=== PATIENT | male | born 1985 | race American Indian/Alaskan Native ===

== ENCOUNTER 2016-10-27 22:00 | Emergency (ER) | payer SELFPAY ==
[2016-10-27] MEDS ORDERED: ZESTRIL ONE (22:34)
[2016-10-27] MEDS ORDERED: HCTZ ONE (22:35)
[2016-10-27] MEDS ORDERED: ZESTRIL PO ONE (22:38)
[2016-10-27] MEDS ORDERED: HCTZ PO ONE (22:39)
[2016-10-28] MEDS ORDERED: CATAPRES PO ONE (01:05)
[2016-10-28 02:02] VITALS: BP 170/110
--- NOTE | 2016-10-28 02:59 | Emergency Department Report ---
ED General Adult HPI - General Chief complaint: High BP Stated complaint: HIGH BLOOD PRESSURE Time Seen by Provider: 10/28/16 02:40 Source: patient Mode of arrival: Ambulatory Limitations: No Limitations - History of Present Illness Initial comments: 31-year-old male past medical history obesity, hypertension presents with complaint of running out of his hypertension medicine 5 days ago. Patient states that he ran out of his lisinopril/hydrochlorothiazide 10-12.5 mg. Patient is awake alert and oriented 3 not in acute distress denies blurry vision chest pain shortness of breath nausea vomiting abdominal pain. Pt STATES HE DOES NOT HAVE HIV, STATES HE WAS GIVEN PROPHYLAXIS AGAINST HIV WITH PReP, CLAIMS HE TESTED NEGATIVE IN THE PAST Onset/Timin -: days(s) Improves with: none Worsens with: none Associated Symptoms: denies other symptoms - Related Data Previous Rx's Medication Instructions Recorded Last Taken Type Lisinopril/Hydrochlorothiazide 1 tab PO BID #60 tablet 10/28/16 Unknown Rx [Zestoretic 10-12.5 mg] Allergies Allergy/AdvReac Type Severity Reaction Status Date / Time No Known Allergies Allergy Verified 10/27/16 22:20 ED Review of Systems ROS: Stated complaint: HIGH BLOOD PRESSURE Other details as noted in HPI Constitutional: denies: chills, fever Eyes: denies: eye pain, eye discharge, vision change ENT: denies: ear pain, throat pain Respiratory: denies: cough, shortness of breath, wheezing Cardiovascular: denies: chest pain, palpitations Endocrine: no symptoms reported Gastrointestinal: denies: abdominal pain, nausea, diarrhea Genitourinary: denies: urgency, dysuria Musculoskeletal: denies: back pain, joint swelling, arthralgia Skin: denies: rash, lesions Neurological: denies: headache, weakness, paresthesias Psychiatric: denies: anxiety, depression Hematological/Lymphatic: denies: easy bleeding, easy bruising ED Past Medical Hx - Past Medical History Previous Medical History?: Yes Hx HIV: Yes - Surgical History Past Surgical History?: No - Social History Smoking Status: Never Smoker Substance Use Type: None - Medications Home Medications: Home Medications Medication Instructions Recorded Confirmed Last Taken Type Lisinopril/Hydrochlorothiazide 1 tab PO BID #60 tablet 10/28/16 Unknown Rx [Zestoretic 10-12.5 mg] ED Physical Exam - General Limitations: No Limitations General appearance: alert, in no apparent distress - Head Head exam: Present: atraumatic, normocephalic - Eye Eye exam: Present: normal appearance, PERRL, EOMI - ENT ENT exam: Present: mucous membranes moist - Neck Neck exam: Present: normal inspection, full ROM - Respiratory Respiratory exam: Present: normal lung sounds bilaterally. Absent: respiratory distress - Cardiovascular Cardiovascular Exam: Present: regular rate, normal rhythm. Absent: systolic murmur, diastolic murmur, rubs, gallop - GI/Abdominal GI/Abdominal exam: Present: soft, normal bowel sounds - Rectal Rectal exam: Present: deferred - Extremities Exam Extremities exam: Present: normal inspection - Back Exam Back exam: Present: normal inspection - Neurological Exam Neurological exam: Present: alert, oriented X3, CN II-XII intact, normal gait - Psychiatric Psychiatric exam: Present: normal affect, normal mood - Skin Skin exam: Present: warm, dry, intact, normal color. Absent: rash ED Course Vital Signs 10/27/16 10/27/16 10/28/16 22:21 22:40 01:04 Temperature 98.2 F Pulse Rate 90 90 Respiratory 18 Rate Blood Pressure 185/129 185/129 Blood Pressure 190/121 [Left] O2 Sat by Pulse 99 Oximetry 10/28/16 10/28/16 01:06 02:01 Temperature Pulse Rate Respiratory Rate Blood Pressure 190/121 Blood Pressure 170/110 [Left] O2 Sat by Pulse Oximetry ED Medical Decision Making - Medical Decision Making A/P: Asymptomatic hypertension 1-refill on lisinopril-hydrochlorothiazide 2-primary care referral 3-patient has no current symptoms, no blurry vision headache dizziness chest pain shortness of breath palpitations paresthesias abdominal pain nausea vomiting Critical care attestation.: If time is entered above; I have spent that time in minutes in the direct care of this critically ill patient, excluding procedure time. ED Disposition Clinical Impression: Hypertension Qualifiers: Hypertension type: unspecified Qualified Code(s): I10 - Essential (primary) hypertension Disposition: TO HOME OR SELFCARE Is pt being admited?: No Does the pt Need Aspirin: No Condition: Stable Instructions: Hypertension (ED) Prescriptions: Lisinopril/Hydrochlorothiazide [Zestoretic 10-12.5 mg] 1 tab PO BID #60 tablet Referrals: [facility] [Outside] - 3-5 Days [facility] [Outside] - 3-5 Days [facility] [Outside] - 3-5 Days [facility] [Provider Group] - 3-5 Days REZA BARCENAS MD [Staff Physician] - 3-5 Days Forms: Work/School Release Form(ED) Time of Disposition: 02:59
== END 2016-10-28 03:06 | disposition home or self-care (01) ==
LOC: ED 22:00
DX: I10 Essential (primary) hypertension (principal); Z21 Asymptomatic human immunodeficiency virus [HIV] infection status
CPT/HCPCS: 99282

== ENCOUNTER 2017-03-04 13:48 | Emergency (ER) | payer SELFPAY ==
[2017-03-04] MEDS ORDERED: HCTZ PO ONE (15:41)
--- NOTE | 2017-03-04 15:44 | Emergency Department Report ---
Chief Complaint: Upper Respiratory Infection Stated Complaint: COUGH/BUCKNER/BODY PAIN - HPI History of Present Illness: 31-year-old male past medical history hypertension presents with complaint of 2- 3 days of body aches cough sore throat. Patient also states he has been out of his blood pressure medications approximately 6 days. Patient awake alert and oriented 3. - ROS Review of Systems: Cold symptoms 5-6 days - Exam Vital Signs: Vital Signs 03/04/17 15:25 Temperature 98.4 F Pulse Rate 85 Respiratory 18 Rate Blood Pressure 215/137 O2 Sat by Pulse 100 Oximetry Physical Exam: Awake alert and oriented 3 heart S1-S2 MSE screening note: Focused history and physical exam performed. Due to findings the following was ordered: Screening Assessment/Plan/Differential Dx: Hypertension, flulike symptoms 1- This initial assessment/diagnostic orders/clinical plan/ treatment(s) is/are subject to change based on pt's health status, clinical progression and re- assessment by fellow clinical providers in the ED. Further treatment and workup at subsequent clinical provers discretion. Patient/guardians urged not to elope from ED as their condition may be serious if not clinically assessed and managed. 2-flu swab sent, basic labs, urinalysis 3-states that he took a friend's lisinopril 20 mg morning. I will provide him with his missing hydrochlorothiazide 4- patient denies shortness of breath, chest pain or palpitations but is complaining of body aches ED Disposition for MSE Condition: Stable
[2017-03-04 15:58] LABS: Basophils # (Auto) 0.1 K/mm3 (0.0-0.1); Basophils % (Auto) 0.9 % (0.0-1.8); Eosinophils # (Auto) 0.3 K/mm3 (0.0-0.4); Hematocrit 43.2 % (35.5-45.6); Hemoglobin 13.7 gm/dl (11.8-15.2); Lymphocytes # (Auto) 2.4 K/mm3 (1.2-5.4); Mean Corpuscular HGB Conc 32 % (32-34); Mean Corpuscular Volume 80 fl (84-94); Monocytes # (Auto) 0.9 K/mm3 (0.0-0.8); Monocytes % (Auto) 12.9 % (0.0-7.3); Platelet Count 199 K/mm3 (140-440); Red Blood Count 5.43 M/mm3 (3.65-5.03); Red Cell Distribution Width 15.7 % (13.2-15.2)
[2017-03-04 16:07] LABS: Mean Corpuscular Hemoglobin 25 pg (28-32)
[2017-03-04 16:15] LABS: Bilirubin,Urine NEG (Negative); Blood,Urine SM (Negative); Color,Urine Yellow (Yellow); Mucus,Urine FEW /HPF; Nitrite,Urine NEG (Negative); Urobilinogen,Urine < 2.0 mg/dL (<2.0)
[2017-03-04 16:22] LABS: BUN/Creatinine Ratio 10; Blood Urea Nitrogen 10 mg/dL (9-20); Calcium 9.7 mg/dL (8.4-10.2); Hemolysis Index 14
[2017-03-04] MEDS ORDERED: CATAPRES PO ONE (17:06)
--- NOTE | 2017-03-04 23:10 | Emergency Department Report ---
HPI - General Chief Complaint: Upper Respiratory Infection Time Seen by Provider: 03/04/17 23:09 - HPI HPI: 31-year-old male past medical history hypertension presents with complaint of 2- 3 days of body aches cough sore throat. Patient also states he has been out of his blood pressure medications approximately 6 days. Patient awake alert and oriented 3. Patient denies any chest pain, shortness of breath. Denies any neck pain or dizziness. He said he has slight headache today but he doesn't have any right now but he is having body aches and feels like he has the flu. Reports that he's been coughing on and off and is been taking rllv-[id number]-[id number] cough and cold and is not helping. He is unable to [place] what medication he is taking these said is [id number] cough medicine. Denies any visual difficulties or dizziness. Pain at present 0-10. Patient states that he just moved to [place] and he does not have a doctor. Denies any abdominal or back pain. ED Past Medical Hx - Past Medical History Previous Medical History?: Yes Hx Hypertension: Yes Hx HIV: Yes - Surgical History Past Surgical History?: No - Family History Family history: hypertension - Social History Smoking Status: Never Smoker Substance Use Type: Alcohol - Medications Home Medications: Home Medications Medication Instructions Recorded Confirmed Last Taken Type Lisinopril/Hydrochlorothiazide 1 tab PO BID #60 tablet 10/28/16 Unknown Rx [Zestoretic 10-12.5 mg] Amoxicillin/K Clav Tab [Augmentin 1 tab PO Q12HR 10 Days #20 tab 03/05/17 Unknown Rx 875 mg] Cetirizine HCl [ZyrTEC] 10 mg PO QAM 14 Days #14 capsule 03/05/17 Unknown Rx Hydrochlorothiazide [HCTZ] 25 mg PO QAM 30 Days #30 tablet 03/05/17 Unknown Rx Lisinopril [Zestril TAB] 20 mg PO QDAY 30 Days #30 tablet 03/05/17 Unknown Rx ED Review of Systems ROS: Stated complaint: COUGH/BUCKNER/BODY PAIN Other details as noted in HPI Comment: All other systems reviewed and negative Constitutional: no symptoms reported Eyes: denies: eye pain, eye discharge, vision change ENT: congestion. denies: throat pain, epistaxis Respiratory: cough. denies: orthopnea, shortness of breath, SOB with exertion, SOB at rest, stridor, wheezing Cardiovascular: denies: chest pain, palpitations, dyspnea on exertion, orthopnea , edema, syncope, paroxysmal nocturnal dyspnea Gastrointestinal: denies: abdominal pain, nausea, vomiting, diarrhea, constipation, hematemesis, melena, hematochezia Genitourinary: denies: urgency, dysuria, frequency, hematuria, discharge Musculoskeletal: denies: back pain, joint swelling, arthralgia, myalgia Skin: denies: rash Neurological: denies: headache, numbness, paresthesias, confusion, abnormal gait , vertigo Physical Exam - Physical Exam Vital Signs: Vital Signs 03/04/17 03/04/17 03/04/17 15:25 17:00 17:11 Temperature 98.4 F Pulse Rate 85 79 Respiratory 18 Rate Blood Pressure 215/137 212/128 Blood Pressure 212/128 [Left] O2 Sat by Pulse 100 Oximetry Vital Signs 03/04/17 03/04/17 03/04/17 15:25 17:00 17:11 Temperature 98.4 F Pulse Rate 85 79 Respiratory 18 Rate Blood Pressure 215/137 212/128 Blood Pressure 212/128 [Left] O2 Sat by Pulse 100 Oximetry 03/04/17 03/05/17 03/05/17 23:32 00:27 01:20 Temperature 98.9 F 99.5 F Pulse Rate 79 80 89 Respiratory 16 16 Rate Blood Pressure 205/125 Blood Pressure 205/125 194/121 [Left] O2 Sat by Pulse 99 100 Oximetry 03/05/17 03/05/17 03/05/17 01:29 01:30 04:15 Temperature Pulse Rate 80 80 81 Respiratory 16 Rate Blood Pressure 192/105 192/105 Blood Pressure 116/64 [Left] O2 Sat by Pulse 99 Oximetry General: This is a 31-year-old male well-nourished well-developed in no acute distress. Physical Exam: Head: Normocephalic, atraumatic, no abrasion, no bruising and no contusion. Eyes: Biateral pupils equal and reactive to light, bilateral EOM intact.. Bilateral conjunctival and sclera without injection, normal accommodation. No nystagmus Mouth: Moist, no pharyngeal exudate or erythema. No peritonsillar abscesses. Uvula is midline and oral airways patent. Ears: TM congested without erythema. Bilateral EAC without any redness swelling or drainage. No mastoid bone tenderness Nose: rose nasal turbinates congested with erythema and clear drainage. Maxillary and frontal sinuses non-tender to palpate. Neck: Supple, No Cervical adenopathy, full range of motion and no C-spine tenderness. No swelling or tracheal deviation normal reflexes Cardiovascular: S1, S2. Regular rate and rhythm. No murmur. Capillary refill is less then 3 seconds. Lungs: Clear to auscultate bilaterally. No rhonchi, wheezes or rales. No chest wall tenderness. No chest contusion. No bruising to chest. Dry cough MSK: Strength 5/5 in all extremities. No joint deformity or crepitus. Normal inspection. Full range of motion to all extremities. No laceration, abrasion or ecchymotic area noted. Patient able to fully flex and extend bilateral knees without any difficulties. Bilateral knees nontender to palpate. Abdomen: Non-tender to palpate in all quadrants, no guarding or rebound tenderness, positive bowel sounds in all quadrants. No CVA tenderness. No hernia, bruit or mass. No rigidity or distention. Extremities: No clubbing, cyanosis or edema. +2 pulses. No neurovascular compromise Skin: Clean, dry and intact. No rash or lesions. Neurological: GCS at 15, Pt is alert and oriented 3 speech is clear . Bilateral hand queen producer strong and equal. Normal gait. Negative Romberg and no pronator drift. Normal Reflexes. No motor or sensory deficit Back: No vertebral tenderness, no paraspinal tenderness. Ambulates without any difficulties. Psych: Normal mood and behavior ED Course Vital Signs 03/04/17 03/04/17 03/04/17 15:25 17:00 17:11 Temperature 98.4 F Pulse Rate 85 79 Respiratory 18 Rate Blood Pressure 215/137 212/128 Blood Pressure 212/128 [Left] O2 Sat by Pulse 100 Oximetry Vital Signs 03/04/17 03/04/17 03/04/17 15:25 17:00 17:11 Temperature 98.4 F Pulse Rate 85 79 Respiratory 18 Rate Blood Pressure 215/137 212/128 Blood Pressure 212/128 [Left] O2 Sat by Pulse 100 Oximetry 03/04/17 03/05/17 03/05/17 23:32 00:27 01:20 Temperature 98.9 F 99.5 F Pulse Rate 79 80 89 Respiratory 16 16 Rate Blood Pressure 205/125 Blood Pressure 205/125 194/121 [Left] O2 Sat by Pulse 99 100 Oximetry 03/05/17 03/05/17 03/05/17 01:29 01:30 04:15 Temperature Pulse Rate 80 80 81 Respiratory 16 Rate Blood Pressure 192/105 192/105 Blood Pressure 116/64 [Left] O2 Sat by Pulse 99 Oximetry - Reevaluation(s) Reevaluation #1: 03/04/17 23:45 Patient received clonidine 0.1 mg and hydrochlorothiazide 12.5 mg and blood pressure remains elevated. Patient is spilling glucose in his urine greater than 500 blood glucoses that 246 per chemistry. Patient denies history of diabetes. I will start IV and give patient normal saline 1 L, hydralazine 20 mg IV and recheck blood pressure. Reevaluation #2: 03/05/17 01:25 Blood pressure after 20 mg hydralazine is 194/121 pulse is 90 heart rate is 100 and respirations 16. Patient remain asymptomatic with elevated blood pressure. Patient to receive an additional 10 mg hydralazine IV and 0.2 of clonidine by mouth. I will recheck blood pressure in one hour Reevaluation #3: 03/05/17 05:20 and blood pressure is better after second dose of hydralazine and clonidine. Patient was asymptomatic with elevated blood pressure throughout ED stay ED Medical Decision Making - Lab Data Result diagrams: 03/04/17 15:44 03/04/17 15:44 Lab Results 03/04/17 03/04/17 03/04/17 Range/Units 15:44 15:44 15:55 WBC 6.7 (4.5-11.0) K/mm3 RBC 5.43 H (3.65-5.03) M/mm3 Hgb 13.7 (11.8-15.2) gm/dl Hct 43.2 (35.5-45.6) % MCV 80 L (84-94) fl MCH 25 L (28-32) pg MCHC 32 (32-34) % RDW 15.7 H (13.2-15.2) % Plt Count 199 (140-440) K/mm3 Lymph % (Auto) 36.0 H (13.4-35.0) % [place] % (Auto) 12.9 H (0.0-7.3) % Eos % (Auto) 5.0 H (0.0-4.3) % Baso % (Auto) 0.9 (0.0-1.8) % Lymph # 2.4 (1.2-5.4) K/mm3 [place] # 0.9 H (0.0-0.8) K/mm3 Eos # 0.3 (0.0-0.4) K/mm3 Baso # 0.1 (0.0-0.1) K/mm3 Seg Neutrophils % 45.2 (40.0-70.0) % Seg Neutrophils # 3.0 (1.8-7.7) K/mm3 Sodium 138 (137-145) mmol/L Potassium 3.7 (3.6-5.0) mmol/L Chloride 99.7 (98-107) mmol/L Carbon Dioxide 23 (22-30) mmol/L Anion Gap 19 mmol/L BUN 10 (9-20) mg/dL Creatinine 1.0 (0.8-1.5) mg/dL Estimated GFR > 60 ml/min BUN/Creatinine Ratio 10 % Glucose 246 H (75-100) mg/dL Calcium 9.7 (8.4-10.2) mg/dL Total Creatine Kinase 614 H (55-170) units/L Urine Color Yellow (Yellow) Urine Turbidity Clear (Clear) Urine pH 5.0 (5.0-7.0) Ur Specific [place] 1.018 (1.003-1.030) Urine Protein 100 mg/dl (Negative) mg/dL Urine Glucose (UA) >=500 (Negative) mg/dL Urine Ketones Neg (Negative) mg/dL Urine Blood Sm (Negative) Urine Nitrite Neg (Negative) Urine Bilirubin Neg (Negative) Urine Urobilinogen < 2.0 (<2.0) mg/dL Ur Leukocyte Esterase Neg (Negative) Urine WBC (Auto) 1.0 (0.0-6.0) /HPF Urine RBC (Auto) 1.0 (0.0-6.0) /HPF Urine Mucus Few /HPF - Medical Decision Making I discussed this case with Dr Alvarez ED course: Patient complaining of upper respiratory infection with cough and nasal congestion. He said that he may use an [id number]-urf-lzllieh cough and cold medication which has not been helping him. He finally remembered that one of the medication was Sudafed. He said he has been taking this for about 4 days. Patient also report that he ran out of his blood pressure medication which he takes a combination of lisinopril 10 and HCTZ 12.5 mg. Patient said he just moved into town and he was in a see the doctor across the street who is Dr. Mitesh Adams. Patient states that his only medical problem is high blood pressure. Pain is 0 out of 10 at present. Patient had CBC done which show no significant abnormality, chemistries showed no significant abnormality except his blood sugar was noted to be 246. He denies diabetes status. Patient urinalysis shows greater than 500 glucose and urine and 100 protein in urine. Patient kidney function is normal and he has no swelling to his extremities. Patient was given HCTZ 12.5 mg, lisinopril 10 mg and clonidine 0.1 mg by screening provider. Abdomen recheck of his blood pressure remains elevated over 200 systolic and over 100 diastolic. INT started and patient given hydralazine 20 mg IV at 11:23 PM. Blood pressure 205/125. Patient remain asymptomatic with elevated blood pressure. Patient was finally given additional hydralazine 10 mg IV with clonidine 0.2 mg by mouth. Blood pressure recheck reflect blood pressure slowly normalizing. Final blood pressure is 116/ 64. Patient stable he had no episode of chest pain, shortness of breath, nausea vomiting, headache, dizziness, back pain or abdominal pain and emergency room with elevated blood pressure. He received 1 L of normal saline bolus to normalize blood glucose. I discussed the patient that he has checked infection with cough and congestion and I'll put him on antibiotic because he's been having symptoms for over a week. I discussed with him that he cannot take over- the-counter cough medicine unless it specific for high blood pressure as these medication will cause elevation in blood pressure. I also discussed with him that it is not normal for individual to have glucose especially at a level of 500 in urine and he also has some protein in his urine so he will need to follow up with primary care physician which I referred him to outside Medical Center. I told him to call in the morning to schedule an appointment which should be 03/06/2017 and while he is waiting for his appointment he needs to keep a record of his blood pressure which she can go to [facility] or [facility] or at the fire station and get his blood pressure taken and recorded blood pressure to take to his primary care visit with him. I also told him that when he schedule his appointment he should let them know that he wants complete physical exam and he would like to have his fasting blood sugar checked. I told him that he should not eat before he goes to the exam so they can check his blood sugar to see if he is diabetes. Patient does have a history of diabetes in his family. Patient stable vital signs stable and discharged from emergency room with prescription for lisinopril 20 mg and HCTZ 25 mg by mouth daily and I told him that these medication or free at [facility] but there and not combination. I also told him that I increased the dose. I instructed him on his lab results and urinalysis and patient discharged from ED in stable condition with prescription for Zyrtec and to flush his nostrils out with nasal saline to relieve congestion, Augmentin, lisinopril and HCTZ. Critical care attestation.: If time is entered above; I have spent that time in minutes in the direct care of this critically ill patient, excluding procedure time. ED Disposition Clinical Impression: Elevated blood pressure reading with diagnosis of hypertension, Upper respiratory infection with cough and congestion, Glycosuria Protein in urine Qualifiers: Proteinuria type: unspecified Qualified Code(s): R80.9 - Proteinuria, unspecified Disposition: DC-01 TO HOME OR SELFCARE Is pt being admited?: No Does the pt Need Aspirin: No Condition: Stable Instructions: Hypertension (ED), Upper Respiratory Infection (ED), Acute Cough (ED), Hyperglycemia, Non-Diabetic (ED), Heart Healthy Diet (ED), Low Fat Diet ( ED), DASH Eating Plan (ED), Low Sodium Diet (ED), Meal Planning with Diabetes Exchanges (DC) Additional Instructions: Please refer to discharge instruction on low sodium, healthy heart and diabetic diet. Please check your blood pressure daily and record and called outside Medical Center on 03/06/2017 to schedule an appointment for evaluation of blood pressure. He will also need to have them manage her blood pressure and check use to make sure that you're not diabetic. Please do not take any [id number] cough medicine. You can ask the pharmacy for cough medicine that is specifically for people with high blood pressure. Your blood pressure medication is free at [facility] so please take medication as prescribed and please try to see primary care at some outside Medical Center before blood pressure medication runs out. Uncontrolled blood pressure and uncontrolled blood sugar can lead to heart disease, stroke, kidney failure, if you have kidney failure you'll end up on dialysis and all these things can lead to at early age. Please check your blood pressure and take your blood pressure medication as instructed. Please establish a primary care physician so they can follow you on a regular basis to manage her blood pressure. Lifestyle modification such as low-sodium diet, low-fat diet, exercise, increasing her water intake and eat in food that is low in sugar, weight loss will also help with your blood pressure. Take antibiotic as prescribed. Prescriptions: Amoxicillin/K Clav Tab [Augmentin 875 mg] 1 tab PO Q12HR 10 Days #20 tab Cetirizine HCl [ZyrTEC] 10 mg PO QAM 14 Days #14 capsule Hydrochlorothiazide [HCTZ] 25 mg PO QAM 30 Days #30 tablet Lisinopril [Zestril TAB] 20 mg PO QDAY 30 Days #30 tablet Referrals: [facility] [Outside] - 03/06/17 Forms: Work/School Release Form(ED)
[2017-03-04] MEDS ORDERED: APRESOLINE IV ONE (23:44)
[2017-03-04] MEDS ORDERED: NACL 0.9% 1000 ML 1,000 ML IV ONE (23:44)
[2017-03-05] MEDS ORDERED: APRESOLINE IV ONE (01:23)
[2017-03-05] MEDS ORDERED: CATAPRES PO ONE (01:23)
[2017-03-05] MEDS ORDERED: CATAPRES ONE (01:23)
[2017-03-05 06:33] VITALS: BP 112/54
== END 2017-03-05 06:32 | disposition home or self-care (01) ==
LOC: ED 13:48
DX: J06.9 Acute upper respiratory infection, unspecified (principal); R81 Glycosuria; I10 Essential (primary) hypertension; R80.9 Proteinuria, unspecified
CPT/HCPCS: 36415; 80048; 81001; 82550; 85025; 87400; 96361; 96374; 96376; 99284; J0360; J7030